=== PATIENT | male | born 1960 | race Caucasian/White ===

== ENCOUNTER → 2017-06-11 | Outpatient (CLI) | payer MEDICARE ==
[~2017-06-11] MED LIST: RISPERDAL1 MG PO; SEROQUEL300 MG PO; XANAX1 MG PO
== END | disposition disaster alternative care site (69) ==
LOC: GRAD 09:39
DX: F17.210 Nicotine dependence, cigarettes, uncomplicated (principal)
CPT/HCPCS: G0297